=== PATIENT | female | born 1985 | race Caucasian/White ===

== ENCOUNTER 2017-12-11 10:25 | Observation (INO) | payer MEDICAID | END 2017-12-11 12:15 | disposition home or self-care (01) | DRG 566 | LOC: LDRP 10:25 | PROVIDERS: ADMIT Specialist; ATTEND Specialist | DX: O26.899 Other specified pregnancy related conditions, unspecified trimester (principal); R06.02 Shortness of breath; R10.9 Unspecified abdominal pain; Z3A.00 Weeks of gestation of pregnancy not specified | CPT/HCPCS: 59025; 81002; 94760; G0378 ==